=== PATIENT | male | born 1980 | race Caucasian/White ===

== ENCOUNTER 2021-11-28 10:33 | Emergency (ER) | payer SELFPAY ==
[~2021-11-28] VITALS: Ht 177.8 cm; Wt 90.7 kg
[2021-11-28] MEDS ORDERED: IBUPROFEN 600 MG TABLET PO ONE (12:15)
[2021-11-28] MEDS ORDERED: CYCLOBENZAPRINE HCL 10 MG TABLET PO ONE (12:15)
[2021-11-28] MEDS ORDERED: IBUP-2070 PO (13:21)
[2021-11-28] MEDS ORDERED: CYCL-448 PO (13:21)
[2021-11-28 13:27] VITALS: BP 132/81
== END 2021-11-28 13:29 | disposition home or self-care (01) ==
LOC: EMS 10:33
DX: S16.1XXA Strain of muscle, fascia and tendon at neck level, initial encounter (principal); S09.90XA Unspecified injury of head, initial encounter; F10.20 Alcohol dependence, uncomplicated; V89.2XXA Person injured in unspecified motor-vehicle accident, traffic, initial encounter; Y93.89 Activity, other specified; Y92.89 Other specified places as the place of occurrence of the external cause; Y99.8 Other external cause status
CPT/HCPCS: 70450; 72125; 99284